=== PATIENT | male | born 1945 | race Caucasian/White ===

== ENCOUNTER 2017-10-31 13:00 | Inpatient (IN) | payer OTHER ==
[~2017-10-31] VITALS: Ht 182.9 cm; Wt 85.6 kg
--- NOTE | ~2017-10-31 | 2DMMODE ---
[facility] [address] [place] [address] 2 D/M-MODE ECHOCARDIOGRAM Name: LATHA HARDING Room #: 354-P ADM IN M.R.#: [id number] Admission: 10/31/17 Attend Phys: Eric Brown MD Discharge: Date of : 41 Date of Service: 11/01/17 1246 Report #: [id number] THIS REPORT FOR: //name// APPROVED REPORT Study performed: 11/01/2017 11:16:36 EXAM: Comprehensive 2D, Doppler, and color-flow Echocardiogram Patient Location: Bedside Room #: 354 Status: routine BSA: 2.08 HR: 89 bpm BP: 109/51 mmHg Rhythm: Irregular Other Information Study Quality: Adequate Technically limited study due to body habitus/minimal patient participation. Indications New onset Afib. Hx: CAD, HTN, HLP, Right AKA 2D Dimensions LVEF(%): 60.70 (>50%) IVSd: 9.59 (7-11mm) LVDd: 45.93 mm PWd: 10.30 (7-11mm) LVDs: 31.07 (25-40mm) Aortic Root: 38.56 mm Dale's LVEF: 60.70 % Volumes Left Atrial Volume (Systole) Single Plane 4CH: 41.56 mL Single Plane 2CH: 44.79 mL LA ESV Index: 23.00 mL/m2 Aortic Valve AoV Peak Gilbert.: 1.21 m/s AO Peak Gr.: 6.54 mmHg LVOT Max P.11 mmHg LVOT Max V: 1.01 m/s Mitral Valve E/A Ratio: 2.2 [facility] [address] [place] [address] 2 D/M-MODE ECHOCARDIOGRAM Name: LATHA HARDING Room #: 354-P ADM IN .R.#: [id number] Admission: 10/31/17 Attend Phys: Eirc Brown MD Discharge: Date of : 41 Date of Service: 11/01/17 1246 Report #: [id number] MV Decel. Time: 177.22 ms MV E Max Gilbert.: 1.02 m/s MV A Gilbert.: 0.47 m/s MV PHT: 51.39 ms IVRT: 69.20 ms Tricuspid Valve TR Peak Gilbert.: 3.11 m/s RAP Estimate: 5.00 mmHg TR Peak Gr.: 38.77 mmHg PA Pressure: 44.00 mmHg Left Ventricle The left ventricle is normal size. There is normal LV segmental wall motion. There is normal left ventricular wall thickness. Left ventricular systolic function is normal. LVEF is 55-60%. This study is not technically sufficient to allow evaluation of the LV diastolic function. Right Ventricle Right ventricle is not well visualized but appears grossly normal. Atria The left atrium size is normal. The right atrium size is normal. Aortic Valve The aortic valve is not well visualized. No aortic regurgitation is present. There is no aortic valvular stenosis. Mitral Valve The mitral valve is normal in structure. Mild mitral regurgitation. No evidence of mitral valve stenosis. Tricuspid Valve Tricuspid valve is not well visualized. Regurgitant jet is difficult to image but appears at least mild. Estimated PAP is 45mmHg. Pulmonic Valve Pulmonic valve is not well visualized. Great Vessels Aortic root is mildly dilated at 3.9. Ascending aorta is not well visualized. IVC is normal in size and collapses >50% with inspiration. [facility] [address] [place] [address] 2 D/M-MODE ECHOCARDIOGRAM Name: LATHA HARDING Room #: 354-P ADM IN M.R.#: [id number] Admission: 10/31/17 Attend Phys: Eric Brown MD Discharge: Date of : 41 Date of Service: 11/01/17 1246 Report #: [id number] Pericardium There is no pericardial effusion. <Conclusion> The left ventricle is normal size. There is normal left ventricular wall thickness. Left ventricular systolic function is normal. Right ventricle is not well visualized but appears grossly normal. The left atrium size is normal. There is no aortic valvular stenosis. Mild mitral regurgitation. There is no pericardial effusion. <ELECTRONICALLY SIGNED> By: Markel Prado MD 11/01/17 1246 1246 1246 Markel Prado MD /INF
--- NOTE | ~2017-10-31 | EKG ---
[address] [address] ELECTROCARDIOGRAM REPORT Name: LATHA HARDING Room #: 170-12 ADM IN M.R.#: [id number] Admission: 10/31/17 Attend Phys: Eric Brown MD Discharge: Date of : 41 Report #: [id number] THIS REPORT FOR: //name// [facility] ED Test Date: 2017-10-31 Test Time: 13:15:38 Pat Name: LATHA HARDING Department: Room: 170 Gender: M Farm Planner: Darcie SALDANA RN : 1945 Requested By: Cinthya Davis Order Number: [id number] MD: Xander Lyons Measurements Intervals [place] Rate: 85 P: 245 GA: 141 QRS: -30 QRSD: 100 T: 39 QT: 339 QTc: 403 Interpretive Statements Atrial fibrillation Compared to ECG 05/27/2015 17:58:44 Electronically Signed On 10-31-2017 15:19:33 SHOP TAILOR by Xander Lyons [email or web address] <ELECTRONICALLY SIGNED> By: Xander Lyons MD 10/31/17 1519 1315 1315 MD REYNA Boucher
--- NOTE | ~2017-10-31 | EEG ---
[facility] [place] [address] [place] [address] ELECTROENCEPHALOGRAM Name: LATHA HARDING Room #: 354-P [facility] IN M.R.#: [id number] Admission: 10/31/17 Attend Phys: Eric Brown MD Discharge: 11/03/17 Date of : 41 Report #: [id number] THIS REPORT FOR: //name// CC: Eric Brown DATE OF SERVICE: 11/01/2017 DATE OF EE11/01/2017. This patient is being evaluated for altered mental status as well as seizure. EEG was done by placing the electrodes by standard 10-20 system of electrode placement. Both referential and sequential montages were used. On the left side, in the temporal area, there does appear to be sometimes a sharper activity. The patient does become drowsy, that is associated with bilateral slowing and vertex sharp waves. IMPRESSION: Borderline EEG with question of some sharper activity present in the left temporal area. After the patient was taken off the EEG, he appeared to have had a seizure, which the train control technician thought was an epileptic seizure. The patient was not hooked to the EEG at that time. Thank you very much for this referral. <ELECTRONICALLY SIGNED> By: Jairo Chauhan MD 11/08/172010 0850 0927 Jairo Chauhan MD /nt
--- NOTE | ~2017-10-31 | EKG ---
[address] [address] ELECTROCARDIOGRAM REPORT Name: LATHA HARDING Room #: 354-P ADM IN M.R.#: [id number] Admission: 10/31/17 Attend Phys: Eric Brown MD Discharge: Date of : 41 Report #: [id number] THIS REPORT FOR: //name// [facility] Test Date: 2017-11-01 Test Time: 07:25:00 Pat Name: LATHA HARDING Department: Room: 354 P Gender: M Baker Second: GR : 1945 Requested By: Eric Brown Order Number: [id number] MD: Xander Lyons Measurements Intervals [place] Rate: 91 P: WI: QRS: -12 QRSD: 103 T: 36 QT: 385 QTc: 474 Interpretive Statements Atrial fibrillation Low voltage, precordial leads Compared to ECG 10/31/2017 13:15:38 Electronically Signed On 11-01-2017 8:15:35 CORKING MACHINE OPERATOR by Xander Lyons [email or web address] <ELECTRONICALLY SIGNED> By: Xander Lyons MD 11/01/17 0815 0725 4 Xander Lyons MD /LAURA
--- NOTE | ~2017-10-31 | H ---
[facility] [place] [address] [place] [address] HISTORY AND PHYSICAL Name: LATHA HARDING Room #: 354-P [facility] IN M.R.#: [id number] Admission: 10/31/17 Attend Phys: Eric Brown MD Discharge: 11/03/17 Date of : 41 Report #: [id number] THIS REPORT FOR: //name// CC: Eric Brown DATE OF SERVICE: 10/31/2017 HISTORY OF PRESENT ILLNESS: The patient is a 71-year-old male who was presented to the Emergency Room from [facility] after having a witnessed grand mal seizure that lasted for 3-4 minutes while he was at lunch. The patient's blood sugar at the EMS arrival was 138. The patient is not able to remember anything about the seizure. The patient indicated that he had seizure before, but he could not remember when was the last time he had the last seizure. PAST MEDICAL HISTORY: Significant for chronic pain syndrome, hypertension, hyperlipidemia, torticollis, hypothyroidism, constipation, gastroesophageal reflux disease, vitamin D deficiency, dry eye syndrome, oropharyngeal dysphagia. The patient had the diagnosis of right above-knee amputation. The patient had previous history of brain bleed, major spinal surgery with scoliosis and coronary artery disease. MEDICATIONS: Reviewed. ALLERGIES: AMPICILLIN, PENICILLIN and SCOPOLAMINE. SOCIAL HISTORY: The patient denies any recent history of smoking, alcohol use or drug use. The patient is living in a jail facility. FAMILY HISTORY: Noncontributory. REVIEW OF SYSTEMS: Unobtainable. PHYSICAL EXAMINATION: GENERAL: The patient is alert. He knows that he is in the hospital, but he does not remember why he came to the hospital and he continued to have very slow response even though is better than yesterday. VITAL SIGNS: On arrival to the hospital showed a temperature of 101.2, pulse 89, respirations 20, blood pressure 151/52 and last blood pressure is 113/52. HEAD AND NECK: Unremarkable besides the presence of torticollis with head lifted to the left. LUNGS: Clear to auscultation with very, very poor respiratory effort. CARDIAC: S1, S2, without any murmur or gallop. ABDOMEN: Benign. Bowel sounds were positive. EXTREMITIES: Without any edema on the left leg, with right above knee amputation. [facility] [address] [place] [address] HISTORY AND PHYSICAL Name: LATHA HARDING Room #: 354-P [facility] IN M.R.#: [id number] Admission: 10/31/17 Attend Phys: Eric Brown MD Discharge: 11/03/17 Date of : 41 Report #: [id number] LABORATORY DATA: The patient's chest x-ray showed probable areas of mild increased density suggesting atelectasis, chronic cardiomegaly with chronic appearing pulmonary congestion, no acute superimposed congestive heart failure, and basilar atelectasis. Urinalysis showed a normal urine. CBC showed a white count of 11.8, hemoglobin 11.3, hematocrit 34.5, platelet count 168 and neutrophils are 83%. The patient's ABGs showed a pH of 7.3, pCO2 64, pO2 80 and oxygen saturation was 95%. Influenza A and B were negative. Basic metabolic panel was normal besides bicarbonate of 37, anion gap of 3 and glucose of 125 but this is nonfasting blood sugar. 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 A 12-lead EKG showed atrial fibrillation. Repeat CBC today showed a white count of 10.8, hemoglobin 9.6, hematocrit 29.0, platelet count 133, neutrophils are 74%. ASSESSMENT AND PLAN: 1. Recurrent seizure, even though I could not see in the patient's chart that patient had any history of seizure, but apparently, the patient said that he had previous history of seizure and he does not know when was the last time he had this type of seizure. 2. Possible aspiration pneumonia. 3. Hypertension. 4. Coronary artery disease. 5. Atrial fibrillation, which is a new diagnosis. I will go ahead and have Neurology to consult the patient. I will repeat 12-lead EKG and I will have an echocardiogram done on the patient. The patient was started on broad-spectrum antibiotics. I will start the patient on Lovenox for DVT prophylaxis. We will continue to monitor the patient. <ELECTRONICALLY SIGNED> By: Eric Brown MD 11/11/17 1352 0702 0743 Eric Brown MD /nt
--- NOTE | ~2017-10-31 | HC ---
[facility] [place] [address] [address] [place] [address] CONSULTATION Name: LATHA HARDING Room #: 354-P [facility] IN M.R.#: [id number] Admission: 10/31/17 Attend Phys: Eric Brown MD Discharge: 11/03/17 Date of : 43 Report #: [id number] THIS REPORT FOR: //name// CC: Eric Brown DATE OF SERVICE: 11/01/2017 HISTORY OF PRESENT ILLNESS: This is a 71-year-old male patient who was seen by me with a complicated and poorly-defined history. I reviewed the patient's record and I talked to the nurses looking after this patient. The patient does not provide any reliable history and no family member is there. Apparently, this patient had a witnessed grand mal seizure, which lasted about 3-4 minutes. He has a prior history of seizure, but it is not clear when was the last seizure and whether he was put on any anticonvulsant. Record indicates that he has a history of a "brain bleed." He is on gabapentin, but looks like he is on gabapentin for the pain. He does not describe what kind of pain he has. REVIEW OF SYSTEMS: Pretty extensive. He has what looks like very fixed neck on the left side and it may be torticollis. He has a history of chronic pain syndrome, hypertension, hyperlipidemia. On examination, he also has tremor in all 4 extremities. He does not tell me where this tremor is from and how long it has been going on. He had surgeries in the past and he looks like he had an amputation on the right knee, but he cannot tell me what that is from. That was his 14-point review of system. PAST MEDICAL HISTORY: Pretty extensive and it is also positive for intractable problem. FAMILY HISTORY: Negative for any seizures. SOCIAL HISTORY: He lives in a longterm. PHYSICAL EXAMINATION: Very limited. He opens his eyes, but does not do anything for me. He does not have much speech output. I do not know what his memory is. His cranial nerve examination 2-12 was attempted. He is very poorly cooperative, but I think it is mostly nonfocal. His neck is fixed in the left lateral position. He moves all 3 extremities, but he does not cooperate with the position sense and I do not think he understands the instruction for cerebellar sign. Pulses are difficult to feel. GENERAL: He is reasonably well-built individual. CARDIAC: Unremarkable. PULMONARY: He does not appear to be in any respiratory difficulty. VITAL SIGNS: His blood pressure is 109/51, respirations 16, pulse is 113, temperature is 98.3. LABORATORY DATA: His hemoglobin is 9.6. He had a CT scan, which does [facility] [address] [place] [address] CONSULTATION Name: LATHA HARDING Room #: 354-P DIS IN M.R.#: [id number] Admission: 10/31/17 Attend Phys: Eric Brown MD Discharge: 11/03/17 Date of : 43 Report #: [id number] demonstrate pretty extensive changes. IMPRESSION: History of seizure in a patient who is predisposed to have seizure. He has multiple insults to the brain. I will suggest putting him on Keppra. He is already on gabapentin. We will get an EEG, but EEG is lot of time negative in these patients and I think it will be desirable to leave him on Keppra. Otherwise, because of what appeared to be very poor quality of his life, I will suggest conservative treatment. 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 He does have torticollis. If Botox shot has not been tried, that can be tried as an outpatient. Thank you very much for this referral and if you have any question, please feel free to contact me. <ELECTRONICALLY SIGNED> By: Jairo Chauhan MD 11/08/172008 1441 0358 Jairo Chauhan MD /nt
[~2017-10-31 13:00] MED LIST: ANTIVERT25 MG PO; CENTRUM SILVER1 EAC4 PO; DILAUDID 2 MG TA2 MG PO; GABAPENTIN 100100 MG PO; MIRALAX17 GM PO; MS CONTIN15 MG PO; OMEPRAZOLE20 M1 PO; SENNA PLUS TAB1 EACH PO; TENORMIN50 MG PO
[2017-10-31 13:01] VITALS: BP 151/72
[2017-10-31 13:55] LABS: URINE BILIRUBIN NEGATIVE (Negative); URINE BLOOD NEGATIVE (Negative); URINE CLARITY CLEAR; URINE COLOR YELLOW; URINE GLUCOSE-RANDOM* NEGATIVE (Negative); URINE KETONES NEGATIVE (Negative); URINE LEUKOCYTES NEGATIVE (Negative); URINE NITRITE NEGATIVE (Negative); URINE PROTEIN (DIPSTICK) NEGATIVE (Negative); URINE SPECIFIC GRAVITY 1.025 (1.005-1.035); URINE UROBILINOGEN 0.2 E.U./dl (0.2-1.0)
[2017-10-31 14:03] LABS: ABSOLUTE NEUTROPHILS 9.9 thou/uL (1.4-8.2); BASOPHILS 0.2 % (0.0-2.0); EOSINOPHILS 0.8 % (0.0-3.0); HEMATOCRIT 34.5 % (42.0-52.0); HEMOGLOBIN 11.3 gm/dL (14.0-18.0); LYMPHOCYTES 7.1 % (24.0-44.0); MCH 30.3 pg (26.0-34.0); MCHC 32.7 g/dL (28.0-37.0); MCV 92.8 fL (80.0-100.0); MONOCYTES 8.2 % (1.0-8.0); PLATELET COUNT 168 thou/uL (150-400); POLYS 83.7 % (36.0-66.0); RBC 3.72 mil/uL (4.50-6.00); RDW 12.8 % (10.5-14.5); WBC 11.8 thou/uL (4.0-11.0)
[2017-10-31 14:04] LABS: BE(vivo) 5.9 mmol/L (-2 to +3); HCO3 33.6 mmol/L (22.0-26.0); PCO2 64.9 mmHg (35.0-45.0); PO2 80.8 mmHg (80.0-100.0); pH 7.332 (7.360-7.450); sO2 94.8 % (92.0-98.0)
[2017-10-31 14:11] LABS: ANION GAP 3 mmol/L (7-16); BUN 18 mg/dL (7-18); CALCIUM 9.4 mg/dL (8.5-10.1); CHLORIDE 102 mmol/L (98-107); CO2 37 mmol/L (21-32); CREATININE 0.9 mg/dL (0.7-1.3); GLUCOSE 125 mg/dL (74-106); POTASSIUM 4.4 mmol/L (3.5-5.1); SODIUM 142 mmol/L (136-145)
[2017-10-31 14:20] LABS: TROPONIN-I < 0.04 ng/mL (<0.06)
[2017-10-31] MEDS ORDERED: ZOCOR20 MG PO (14:26)
[2017-10-31] MEDS ORDERED: XALATAN2.5 ML OPHTHALMIC (14:27)
[2017-10-31] MEDS ORDERED: ATROPINE SULFATE2 ML SUBLING (14:27)
[2017-10-31] MEDS ORDERED: VOLTAREN GEL 1100 GM TOP (14:28)
[2017-10-31] MEDS ORDERED: MORPHINE SULFAT30 M2 PO (14:28)
[2017-10-31] MEDS ORDERED: TYLENOL325 MG PO (14:29)
[2017-10-31] MEDS ORDERED: MULTIVITAMINS PO (14:29)
[2017-10-31] MEDS ORDERED: BISACODYL SUPP10 MG RECTAL (14:30)
[2017-10-31] MEDS ORDERED: IPRAT-ALBUT 0.5-3 ML INH (14:31)
[2017-10-31] MEDS ORDERED: PEPCID20 MG PO (14:33)
[2017-10-31] MEDS ORDERED: DILAUDID 4 MG TA4 M1 PO (14:33)
[2017-10-31] MEDS ORDERED: MUCINEX1200 MG PO (14:34)
[2017-10-31] MEDS ORDERED: LIDOCAINE35.44 GM TOP (14:36)
[2017-10-31] MEDS ORDERED: ALBUTEROL2.5 MG/31 INH (14:38)
[2017-10-31] MEDS ORDERED: TUMS PO (14:38)
[2017-10-31] MEDS ORDERED: VITAMINC500 PO (14:39)
[2017-10-31 17:13] VITALS: BP 112/55
[2017-10-31 18:42] VITALS: BP 113/57
[2017-10-31 19:40] VITALS: BP 101/43
[2017-10-31 23:55] VITALS: BP 131/56
[2017-11-01 03:54] VITALS: BP 113/52
[2017-11-01 06:48] LABS: ABSOLUTE NEUTROPHILS 8.1 thou/uL (1.4-8.2); BASOPHILS 0.3 % (0.0-2.0); EOSINOPHILS 0.7 % (0.0-3.0); HEMOGLOBIN 9.6 gm/dL (14.0-18.0); LYMPHOCYTES 12.9 % (24.0-44.0); MCH 30.8 pg (26.0-34.0); MCHC 33.1 g/dL (28.0-37.0); MCV 93.2 fL (80.0-100.0); MONOCYTES 11.2 % (1.0-8.0); PLATELET COUNT 133 thou/uL (150-400); POLYS 74.9 % (36.0-66.0); RBC 3.11 mil/uL (4.50-6.00); RDW 13.2 % (10.5-14.5); WBC 10.8 thou/uL (4.0-11.0)
[2017-11-01 07:16] LABS: CALCIUM 8.1 mg/dL (8.5-10.1); CREATININE 0.9 mg/dL (0.7-1.3); POTASSIUM 3.9 mmol/L (3.5-5.1)
[2017-11-01 08:15] VITALS: BP 109/51
[2017-11-01 15:29] LABS: TSH 1.015 uIU/mL (0.358-3.740)
[2017-11-01 20:00] VITALS: BP 120/69
[2017-11-02 04:15] LABS: CALCIUM 8.3 mg/dL (8.5-10.1); CREATININE 0.8 mg/dL (0.7-1.3)
[2017-11-02 04:23] LABS: HEMATOCRIT 28.6 % (42.0-52.0); HEMOGLOBIN 9.5 gm/dL (14.0-18.0); MCH 31.2 pg (26.0-34.0); MCHC 33.2 g/dL (28.0-37.0); MCV 94.1 fL (80.0-100.0); PLATELET COUNT 132 thou/uL (150-400); RBC 3.04 mil/uL (4.50-6.00); WBC 8.1 thou/uL (4.0-11.0)
[2017-11-02 05:07] LABS: ABSOLUTE NEUTROPHILS 4.9 thou/uL (1.4-8.2)
[2017-11-02 05:45] VITALS: BP 125/64
[2017-11-02 09:10] VITALS: BP 123/53
[2017-11-02 19:18] VITALS: BP 115/47
[2017-11-03 04:20] VITALS: BP 120/55
[2017-11-03 05:51] LABS: HEMATOCRIT 29.4 % (42.0-52.0); HEMOGLOBIN 9.7 gm/dL (14.0-18.0); MCV 93.9 fL (80.0-100.0); RBC 3.13 mil/uL (4.50-6.00); RDW 12.9 % (10.5-14.5); WBC 6.4 thou/uL (4.0-11.0)
[2017-11-03 06:03] LABS: CALCIUM 8.6 mg/dL (8.5-10.1); POTASSIUM 4.2 mmol/L (3.5-5.1)
[2017-11-03 07:51] VITALS: BP 134/52
[2017-11-03 09:12] VITALS: BP 134/52
[2017-11-03] MEDS ORDERED: KEPPRA 500 MG500 M1 PO (10:31)
[2017-11-03] MEDS ORDERED: LEVAQUIN 750 M750 MG PO (10:31)
== END 2017-11-03 15:50 | DRG 871 ==
LOC: ER 13:00 → EROBS 14:24 → 3W 14:24
PROVIDERS: Emergency Medicine; Internal Medicine; Nurse Practitioner Adult Health; Psychiatry & Neurology Neuromuscular Medicine
DX: A41.9 Sepsis, unspecified organism (principal); R65.21 Severe sepsis with septic shock; J69.0 Pneumonitis due to inhalation of food and vomit; G40.909 Epilepsy, unspecified, not intractable, without status epilepticus; I25.10 Atherosclerotic heart disease of native coronary artery without angina pectoris; I10 Essential (primary) hypertension; M41.9 Scoliosis, unspecified; E03.9 Hypothyroidism, unspecified; K21.9 Gastro-esophageal reflux disease without esophagitis; G89.4 Chronic pain syndrome; E78.5 Hyperlipidemia, unspecified; K59.00 Constipation, unspecified; H04.129 Dry eye syndrome of unspecified lacrimal gland; I48.91 Unspecified atrial fibrillation; Z79.899 Other long term (current) drug therapy; Z88.6 Allergy status to analgesic agent; Z88.8 Allergy status to other drugs, medicaments and biological substances
CPT/HCPCS: 10879

== ENCOUNTER → 2018-03-08 | Outpatient (CLI) | payer OTHER ==
[~2018-03-08] MED LIST changes: +ALBUTEROL2.5 MG/31 INH; +ATROPINE SULFATE2 ML SUBLING; +BISACODYL SUPP10 MG RECTAL; +DILAUDID 4 MG TA4 M1 PO; +IPRAT-ALBUT 0.5-3 ML INH; +KEPPRA 500 MG500 M1 PO; +LEVAQUIN 750 M750 MG PO; +LIDOCAINE35.44 GM TOP; +MORPHINE SULFAT30 M2 PO; +MUCINEX1200 MG PO; +MULTIVITAMINS PO; +PEPCID20 MG PO; +TUMS PO; +TYLENOL325 MG PO; +VITAMINC500 PO; +VOLTAREN GEL 1100 GM TOP; +XALATAN2.5 ML OPHTHALMIC; +ZOCOR20 MG PO
== END ==
LOC: RAD 09:44
DX: M85.88 Other specified disorders of bone density and structure, other site (principal); M54.6 Pain in thoracic spine; G89.4 Chronic pain syndrome; E78.5 Hyperlipidemia, unspecified; E03.9 Hypothyroidism, unspecified; K21.9 Gastro-esophageal reflux disease without esophagitis

== ENCOUNTER 2018-04-08 06:29 | Emergency (ER) | payer OTHER ==
[~2018-04-08] VITALS: Ht 182.9 cm; Wt 85.3 kg
--- NOTE | ~2018-04-08 | EKG ---
[address] [address] [place] [address] ELECTROCARDIOGRAM REPORT Name: LATHA HARDING Room #: DEP JIMMY Baron#: [id number] Admission: 04/08/18 Attend Phys: Discharge: 04/08/18 Date of : 41 Report #: [id number] THIS REPORT FOR: //name// [facility] ED Test Date: 2018-04-08 Test Time: 09:29:32 Pat Name: LATHA HARDING Department: Room: Gender: M Social Media Editor: at : 1945 Requested By: Emily Raymundo Order Number: [id number] MD: Ajay Burk Measurements Intervals [place] Rate: 100 P: 0 IN: 145 QRS: -33 QRSD: 92 T: 32 QT: 368 QTc: 475 Interpretive Statements Sinus tachycardia Left axis deviation Low voltage, precordial leads Abnormal R-wave progression, early transition Compared to ECG 11/01/2017 07:25:00 Left-axis deviation now present Atrial fibrillation no longer present Electronically Signed On 04-08-2018 14:12:02 CDT by Ajay Burk [email or web address] <ELECTRONICALLY SIGNED> By: Ajay Burk MD, [facility] 04/08/18 1412 0929 0929 Ajay Burk MD, [facility] /EPI
[2018-04-08 07:36] LABS: BASOPHILS 0.5 % (0.0-2.0); EOSINOPHILS 0.1 % (0.0-3.0); HEMATOCRIT 33.8 % (42.0-52.0); HEMOGLOBIN 11.3 gm/dL (14.0-18.0); LYMPHOCYTES 12.9 % (24.0-44.0); MCH 30.6 pg (26.0-34.0); MCHC 33.4 g/dL (28.0-37.0); MCV 91.6 fL (80.0-100.0); MONOCYTES 6.1 % (1.0-8.0); PLATELET COUNT 196 thou/uL (150-400); POLYS 80.4 % (36.0-66.0); RBC 3.69 mil/uL (4.50-6.00); RDW 13.1 % (10.5-14.5); WBC 6.2 thou/uL (4.0-11.0)
[2018-04-08 07:40] LABS: CALCIUM 9.3 mg/dL (8.5-10.1); POTASSIUM 3.6 mmol/L (3.5-5.1)
[2018-04-08 07:45] LABS: ALBUMIN 3.2 g/dL (3.4-5.0); DIRECT BILIRUBIN 0.1 mg/dL (<0.1-0.3); TOTAL BILIRUBIN 0.4 mg/dL (<0.1-1.0); TOTAL PROTEIN 7.5 g/dL (6.4-8.2)
[2018-04-08] MEDS ORDERED: ASPIRIN81 M2 PO (08:37)
[2018-04-08] MEDS ORDERED: OMEPRAZOLE 20 M20 M1 PO (08:38)
[2018-04-08] MEDS ORDERED: MUCINEX1200 MG PO (08:39)
[2018-04-08] MEDS ORDERED: ZOFRAN ODT4 MG PO (10:27)
== END 2018-04-08 12:11 ==
LOC: ER 06:29
PROVIDERS: Emergency Medicine
DX: R11.2 Nausea with vomiting, unspecified (principal); G89.4 Chronic pain syndrome; I25.10 Atherosclerotic heart disease of native coronary artery without angina pectoris; I10 Essential (primary) hypertension; E03.9 Hypothyroidism, unspecified; K21.9 Gastro-esophageal reflux disease without esophagitis; E78.5 Hyperlipidemia, unspecified; Z88.1 Allergy status to other antibiotic agents; Z88.0 Allergy status to penicillin; Z88.8 Allergy status to other drugs, medicaments and biological substances

== ENCOUNTER 2018-06-21 13:20 | Inpatient (IN) | payer OTHER ==
[~2018-06-21] VITALS: Ht 188 cm; Wt 83.0 kg
--- NOTE | ~2018-06-21 | P ---
[facility] [place] [address] [place] [address] PROCEDURE REPORT Name: LATHA HARDING Room #: 455-P [facility] IN M.R.#: [id number] Admission: 06/21/18 Attend Phys: Eric Brown MD Discharge: 06/23/18 Date of : 43 Report #: [id number] THIS REPORT FOR: //name// CC: Eric Brown MD DATE OF SERVICE: 06/22/2018 PROCEDURE PERFORMED: Upper endoscopy with biopsies. HISTORY OF PRESENT ILLNESS: The patient is a 72-year-old male who was admitted through the Emergency Room for hematemesis. He has a history of gastroesophageal reflux disease, has been on omeprazole 20 mg per day, but also on aspirin on a daily basis. Stools are Hemoccult positive. Hemoglobin was 11.2 on admission. The patient is unsure if he has ever had a previous history of upper endoscopy. Plan is for upper endoscopy. The procedure was performed under medical necessity as the patient's durable power of compliance attorney was not available. DESCRIPTION OF PROCEDURE: Sedation was given using propofol per Anesthesia. Next, using a standard Olympus upper endoscope, the scope was placed in the patient's mouth and advanced under direct vision through the esophagus, stomach and into the second portion of the duodenum. The larynx was normal in appearance. The esophagus was normal throughout. The GE junction was normal. Overall, there was a mild gastritis noted in the body and the antrum. No evidence of bleeding, no ulcerations or erosions. Biopsies were obtained to rule out H. pylori. The pylorus was normal and patent. The duodenal bulb, first and second portion were normal. The scope was then withdrawn and the procedure terminated. The patient tolerated the procedure well. IMPRESSION: 1. Mild gastritis. 2. Otherwise, normal upper endoscopy. RECOMMENDATIONS: 1. Await biopsy results. 2. Continue PPI therapy. 3. We will add Carafate at this time. 4. Continue to monitor hemoglobin. Thank you for allowing me to participate in his care. <ELECTRONICALLY SIGNED> By: Prem Edwards MD 06/25/18 1727 1300 1431 Prem Edwards MD /nt
--- NOTE | ~2018-06-21 | PATH ---
[facility] [address] [place] [address] PATHOLOGY RPT PROCEDURE Name: LATHA SMITH Room #: 455-P [facility] IN M.R.#: [id number] Admission: 06/21/18 Date of : 41 Discharge: 06/23/18 Report #: [id number] Path Case #: [id number] [facility] Accession Number: [id number] . 01 Material submitted: . BX OF GASTRITIS . 01 Clinical history: . Gastritis . 02 Diagnosis: Gastric mucosa, gastritis, endoscopic biopsy: - Lamina propria fibrosis as well as markedly congested vessels in lamina propria, features of moderate reactive gastropathy with focal ulceration. - Negative for active gastritis. - Negative for intestinal metaplasia or atrophy. - Negative for Helicobacter pylori (properly controlled immunohistochemical stain performed). (IUV/db; 06/26/18) LBQ/06/26/2018 . 02 Electronically signed: . Haylee Frank MD, Pathologist NPI- [id number] . 01 Gross description: . Received in formalin labeled "Latha Smith, biopsy of gastritis" are 2 soft aragon tissue fragments each averaging 0.3 cm which are entirely submitted as A1. (MICHELLE; 06/25/2018) JBR/JBR . 02 Pathologist provided ICD-10: K31.9, K25.9 . 02 CPT . 249540, J28518 Specimen Comment: A courtesy copy of this report has been sent to Specimen Comment: [phone], . Specimen Comment: Report sent to and Performed at: [address] [id number] MD Mayito Schultz MD Phone: [phone] Performed at: [address] [id number] [address] [address] PATHOLOGY RPT PROCEDURE Name: LATHA SMITH Room #: 455-P DIS IN M.R.#: [id number] Admission: 06/21/18 Date of : 41 Discharge: 06/23/18 Report #: [id number] Path Case #: [id number] MD Haylee Frank MD Phone: [phone]
--- NOTE | ~2018-06-21 | EKG ---
[place] [address] [address] [facility] [place] [address] ELECTROCARDIOGRAM REPORT Name: LATHA HARDING Room #: REG JIMMY Baron#: [id number] Admission: 06/21/18 Attend Phys: Discharge: Date of : 41 Report #: [id number] THIS REPORT FOR: //name// [facility] ED Test Date: 2018-06-21 Test Time: 13:49:02 Pat Name: LATHA HARDING Department: Room: Gender: M Rate And Cost Analyst: TSTANDREY : 1945 Requested By: Ashwini Jenkins Order Number: [id number] MD: Measurements Intervals [place] Rate: 98 P: 0 MA: 46 QRS: -29 QRSD: 101 T: 79 QT: 383 QTc: 490 Interpretive Statements Sinus rhythm Short MA interval Borderline left axis deviation Abnormal R-wave progression, early transition Borderline ST depression, anterolateral leads ST elevation, consider inferior injury Borderline prolonged QT interval Compared to ECG 04/08/2018 09:29:32 Short MA interval now present ST (T wave) deviation now present Myocardial infarct finding now present Sinus tachycardia no longer present [email or web address] By: [id number] 1349 [place], [place] /EPI
[~2018-06-21 13:20] MED LIST changes: +ASPIRIN81 M2 PO; +OMEPRAZOLE 20 M20 M1 PO; +ZOFRAN ODT4 MG PO
[2018-06-21 13:21] VITALS: BP 149/77
[2018-06-21 13:50] LABS: ABSOLUTE NEUTROPHILS 6.2 thou/uL (1.4-8.2); BASOPHILS 0.4 % (0.0-2.0); EOSINOPHILS 0.1 % (0.0-3.0); HEMOGLOBIN 11.2 gm/dL (14.0-18.0); LYMPHOCYTES 12.6 % (24.0-44.0); MCH 30.3 pg (26.0-34.0); MCHC 32.9 g/dL (28.0-37.0); MCV 92.1 fL (80.0-100.0); MONOCYTES 3.2 % (1.0-8.0); PLATELET COUNT 182 thou/uL (150-400); POLYS 83.7 % (36.0-66.0); RDW 13.4 % (10.5-14.5); WBC 7.4 thou/uL (4.0-11.0)
[2018-06-21 13:58] LABS: CALCIUM 9.5 mg/dL (8.5-10.1); CREATININE 0.9 mg/dL (0.7-1.3); POTASSIUM 3.6 mmol/L (3.5-5.1)
[2018-06-21 14:04] LABS: TOTAL BILIRUBIN 0.3 mg/dL (<0.1-1.0); TOTAL PROTEIN 7.5 g/dL (6.4-8.2)
[2018-06-21 15:54] VITALS: BP 143/82
[2018-06-21 16:50] VITALS: BP 143/82
[2018-06-21 16:53] LABS: URINE BILIRUBIN NEGATIVE (Negative); URINE BLOOD NEGATIVE (Negative); URINE CLARITY CLEAR; URINE COLOR YELLOW; URINE GLUCOSE-RANDOM* NEGATIVE (Negative); URINE KETONES NEGATIVE (Negative); URINE LEUKOCYTES-REFLEX NEGATIVE (Negative); URINE NITRITE-REFLEX NEGATIVE (Negative); URINE PROTEIN (DIPSTICK) NEGATIVE (Negative); URINE SPECIFIC GRAVITY 1.015 (1.005-1.035)
[2018-06-21 17:15] VITALS: BP 144/85
[2018-06-21 19:54] VITALS: BP 133/76
[2018-06-21 20:41] LABS: HEMATOCRIT 29.7 % (42.0-52.0); HEMOGLOBIN 10.1 gm/dL (14.0-18.0)
[2018-06-22 00:02] VITALS: BP 136/64
[2018-06-22 03:39] VITALS: BP 143/84
[2018-06-22 07:33] VITALS: BP 140/83
[2018-06-22 15:00] VITALS: BP 125/73
[2018-06-22 20:35] VITALS: BP 121/58
[2018-06-22 20:41] LABS: HEMATOCRIT 27.8 % (42.0-52.0); HEMOGLOBIN 9.6 gm/dL (14.0-18.0)
[2018-06-23 04:00] VITALS: BP 141/64
[2018-06-23] MEDS ORDERED: CARAFATE 1 GM TA1 G1 PO (07:35)
[2018-06-23] MEDS ORDERED: PROTONIX40 M1 PO (07:35)
[2018-06-23 07:54] VITALS: BP 147/57
[2018-06-23 08:30] LABS: HEMATOCRIT 27.5 % (42.0-52.0); HEMOGLOBIN 9.4 gm/dL (14.0-18.0); MCHC 34.2 g/dL (28.0-37.0); MCV 90.7 fL (80.0-100.0); RBC 3.03 mil/uL (4.50-6.00); RDW 13.4 % (10.5-14.5)
[2018-06-23 08:41] LABS: CALCIUM 8.9 mg/dL (8.5-10.1); CREATININE 0.8 mg/dL (0.7-1.3); POTASSIUM 3.4 mmol/L (3.5-5.1)
[2018-06-23 15:20] VITALS: BP 147/57
== END 2018-06-23 16:10 | DRG 379 ==
LOC: ER 13:20 → 4W 15:10 → EROBS 15:10 → 4W 16:58
PROVIDERS: Nurse Practitioner Adult Health; Physician Assistant
PROC: 0DB68ZX Excision of Stomach, Via Natural or Artificial Opening Endoscopic, Diagnostic (ICD-10-PCS; principal; 2018-06-22)
DX: K29.71 Gastritis, unspecified, with bleeding (principal); I10 Essential (primary) hypertension; K29.81 Duodenitis with bleeding; E78.5 Hyperlipidemia, unspecified; E03.9 Hypothyroidism, unspecified; G89.4 Chronic pain syndrome; K92.0 Hematemesis; M43.6 Torticollis; R25.1 Tremor, unspecified; D64.9 Anemia, unspecified; I25.10 Atherosclerotic heart disease of native coronary artery without angina pectoris; K21.9 Gastro-esophageal reflux disease without esophagitis; Z89.611 Acquired absence of right leg above knee; Z88.1 Allergy status to other antibiotic agents; Z88.0 Allergy status to penicillin; Z88.8 Allergy status to other drugs, medicaments and biological substances; Z79.82 Long term (current) use of aspirin; Z79.899 Other long term (current) drug therapy; I25.2 Old myocardial infarction; Z90.49 Acquired absence of other specified parts of digestive tract; Z98.49 Cataract extraction status, unspecified eye; Z86.73 Personal history of transient ischemic attack (TIA), and cerebral infarction without residual deficits
CPT/HCPCS: 10045; 62110; 62900; 70005

== ENCOUNTER 2018-06-25 09:09 | Emergency (ER) | payer OTHER ==
[~2018-06-25] VITALS: Ht 172.7 cm; Wt 90.7 kg
--- NOTE | ~2018-06-25 | EKG ---
[place] [address] [address] [place] [address] ELECTROCARDIOGRAM REPORT Name: LATHA HARDING Room #: DEP JIMMY Baron#: [id number] Admission: 06/25/18 Attend Phys: Discharge: 06/25/18 Date of : 41 Report #: [id number] THIS REPORT FOR: //name// [facility] ED Test Date: 2018-06-25 Test Time: 09:24:55 Pat Name: LATHA HARDING Department: Room: Gender: M Transportation Lead: : 1945 Requested By: Jaime Calloway Order Number: [id number] MD: Xander Lyons Measurements Intervals [place] Rate: 68 P: 0 [place]: 62 QRS: -30 QRSD: 97 T: 11 QT: 417 QTc: 444 Interpretive Statements Sinus rhythm Short [place] interval Left axis deviation Abnormal R-wave progression, early transition Compared to ECG 04/08/2018 09:29:32 Short [place] interval now present Sinus tachycardia no longer present Electronically Signed On 06-25-2018 17:47:03 CDT by Xander Lyons [email or web address] <ELECTRONICALLY SIGNED> By: Xander Lyons MD 06/25/18 3937 3 3 Xander Lyons MD /LAURA
[~2018-06-25 09:09] MED LIST changes: +CARAFATE 1 GM TA1 G1 PO; +PROTONIX40 M1 PO
[2018-06-25 09:36] LABS: HEMATOCRIT 29.5 % (42.0-52.0); HEMOGLOBIN 9.8 gm/dL (14.0-18.0); MCH 30.2 pg (26.0-34.0); MCHC 33.3 g/dL (28.0-37.0); MCV 90.8 fL (80.0-100.0); RBC 3.25 mil/uL (4.50-6.00); RDW 13.3 % (10.5-14.5); WBC 5.6 thou/uL (4.0-11.0)
[2018-06-25 09:45] LABS: ANION GAP 3 mmol/L (7-16); BUN 16 mg/dL (7-18); CALCIUM 8.9 mg/dL (8.5-10.1); CHLORIDE 107 mmol/L (98-107); CO2 32 mmol/L (21-32); CREATININE 0.7 mg/dL (0.7-1.3); GLUCOSE 102 mg/dL (74-106); POTASSIUM 3.9 mmol/L (3.5-5.1); SODIUM 142 mmol/L (136-145)
[2018-06-25 09:54] LABS: TROPONIN-I <0.06 ng/mL (<0.06)
[2018-06-25 10:46] LABS: URINE BILIRUBIN NEGATIVE (Negative); URINE BLOOD NEGATIVE (Negative); URINE CLARITY CLEAR; URINE COLOR YELLOW; URINE GLUCOSE-RANDOM* NEGATIVE (Negative); URINE KETONES NEGATIVE (Negative); URINE LEUKOCYTES-REFLEX NEGATIVE (Negative); URINE NITRITE-REFLEX NEGATIVE (Negative); URINE PROTEIN (DIPSTICK) NEGATIVE (Negative); URINE SPECIFIC GRAVITY 1.025 (1.005-1.035); URINE UROBILINOGEN 0.2 E.U./dl (0.2-1.0)
== END 2018-06-25 12:42 ==
LOC: ER 09:09
PROVIDERS: Emergency Medicine
DX: F19.921 Other psychoactive substance use, unspecified with intoxication with delirium (principal); I25.10 Atherosclerotic heart disease of native coronary artery without angina pectoris; I10 Essential (primary) hypertension; G89.4 Chronic pain syndrome; E03.9 Hypothyroidism, unspecified; K21.9 Gastro-esophageal reflux disease without esophagitis; E78.5 Hyperlipidemia, unspecified; M41.9 Scoliosis, unspecified; Z86.73 Personal history of transient ischemic attack (TIA), and cerebral infarction without residual deficits; Z88.1 Allergy status to other antibiotic agents; Z88.0 Allergy status to penicillin; Z88.8 Allergy status to other drugs, medicaments and biological substances

== ENCOUNTER 2018-10-27 03:40 | Inpatient (IN) | payer OTHER ==
[~2018-10-27] VITALS: Ht 185.4 cm; Wt 81.1 kg
[2018-10-27 03:41] VITALS: BP 104/60
[2018-10-27 04:11] LABS: BASOPHILS 0.3 % (0.0-2.0); HEMATOCRIT 37.1 % (42.0-52.0); HEMOGLOBIN 12.3 gm/dL (14.0-18.0); MCH 30.4 pg (26.0-34.0); MCHC 33.1 g/dL (28.0-37.0); MCV 91.7 fL (80.0-100.0); MONOCYTES 5.3 % (1.0-8.0); PLATELET COUNT 178 thou/uL (150-400); POLYS 89.4 % (36.0-66.0); RBC 4.04 mil/uL (4.50-6.00); RDW 14.2 % (10.5-14.5); WBC 11.2 thou/uL (4.0-11.0)
[2018-10-27 04:22] LABS: CALCIUM 9.2 mg/dL (8.5-10.1); CREATININE 1.5 mg/dL (0.7-1.3)
[2018-10-27 04:28] LABS: ALBUMIN 3.2 g/dL (3.4-5.0); TOTAL BILIRUBIN 0.5 mg/dL (<0.1-1.0); TOTAL PROTEIN 7.8 g/dL (6.4-8.2)
[2018-10-27 06:05] VITALS: BP 112/57
[2018-10-27 06:15] LABS: URINE CLARITY CLEAR; URINE COLOR YELLOW; URINE GLUCOSE-RANDOM* NEGATIVE (Negative); URINE KETONES TRACE (Negative); URINE PROTEIN (DIPSTICK) NEGATIVE (Negative); URINE SPECIFIC GRAVITY > 1.030 (1.005-1.035)
[2018-10-27 06:16] LABS: ICTOTEST (BILI CONFIRMATORY) Negative (Negative); URINE BILIRUBIN NEGATIVE (Negative); URINE BLOOD NEGATIVE (Negative); URINE LEUKOCYTES-REFLEX NEGATIVE (Negative); URINE NITRITE-REFLEX NEGATIVE (Negative)
[2018-10-27 07:05] VITALS: BP 116/47
[2018-10-27] MEDS ORDERED: PROTONIX40 M1 PO (07:21)
[2018-10-27] MEDS ORDERED: ZANAFLEX2 MG PO (07:22)
[2018-10-27] MEDS ORDERED: OXYCODONE HCL 55 MG PO (07:23)
[2018-10-27] MEDS ORDERED: DURAGESIC1 EAC4 TRANSDERM (07:24)
[2018-10-27] MEDS ORDERED: LEVSIN-SL0.125 MG PO (07:26)
[2018-10-27 07:27] VITALS: BP 124/58
[2018-10-27 15:30] VITALS: BP 133/76
[2018-10-27 19:30] VITALS: BP 128/73
--- NOTE | 2018-10-27 19:39 | NUR ---
PATIENT ADMITTED TO ROOM THIS AM. HE IS QUITE CONFUSED. UNABLE TO VERBALIZE WHERE HE IS OR WHAT DAY IT IS. HE HAS SLEPT THROUGH THE DAY. THIS AFTERNOON HE WAS MORE ALERT. HE DID ASK FOR PAIN MEDICATION. PRN PAIN MED ADMINISTERED AND IT WAS EFFECTIVE. CT SCAN SHOWED CONSTIPATION AND ONE TIME ORDER FOR FLEET ENEMA. ENEMA ADMNINISTERED AND IT WAS EFFECTIVE HE HAD A LARGE BM. WILL CONT WITH PLAN OF CARE.
--- NOTE | 2018-10-28 03:31 | NUR ---
PATIENT ASSESSED AND IS ALERT X 2-3. SKIN WARM AND DRY. RESP EVEN AND UNLABORED. IS ON 2LNC. DENIES ANY SOA. PAIN IN BACK AND NECK AREA. PAIN MED GIVEN WITH GOOOD RELIEF. DR BENSON CALLED AND ASKED ABOUT NPO STATUS AND NEW ORDERES RECEIVED WITH A EKG ORDER FOR A-FIB. TELE- SHOWS A-FIB. HAS A SCAB ON RIGHT AKA STUMP NO OPEN AREAS. ALSO A SMALL SCAB ON LEFT SIDE OF KNEE. NO OPEN AREAS. TURNED Q 2 HOURS. ONLY HAD A SMALL BM THIS SHIFT. REMAINS VERY CONTRACTED IN ARMS AND NECK. IV SITE HEALTHY WITH FLUIDS INFUSING WELL. REMAINS INCONT OF URINE. EKG DONE PER ORDERS AND IS IS IN A-FIB. DENIES ANY S/S. CONT PLAN OF CARE. LUNGS DISM IN LLL AND L UPPER LOBE. CONT PLAN OF CARE.
[2018-10-28 03:38] VITALS: BP 132/86
[2018-10-28 05:33] LABS: BASOPHILS 0.2 % (0.0-2.0); EOSINOPHILS 0.2 % (0.0-3.0); HEMATOCRIT 31.7 % (42.0-52.0); LYMPHOCYTES 9.9 % (24.0-44.0); MCH 30.7 pg (26.0-34.0); MCHC 32.6 g/dL (28.0-37.0); MCV 94.3 fL (80.0-100.0); MONOCYTES 11.3 % (1.0-8.0); PLATELET COUNT 164 thou/uL (150-400); POLYS 78.4 % (36.0-66.0); RBC 3.36 mil/uL (4.50-6.00); RDW 14.6 % (10.5-14.5); WBC 11.5 thou/uL (4.0-11.0)
[2018-10-28 05:37] VITALS: BP 138/87
[2018-10-28 05:37] LABS: HEMOGLOBIN 10.3 gm/dL (14.0-18.0)
--- NOTE | 2018-10-28 05:42 | NUR ---
Patient became raspy and his lungs are wet sounding, with wheezing. Tele- became tachy. denies any pain. vs as fo.lowed. hob elevated. placed a call to dr Brown at 0540. Awaiting his call back. iv fluids stopped for know. heart rate 101.
[2018-10-28 05:54] LABS: CALCIUM 8.5 mg/dL (8.5-10.1); CREATININE 0.9 mg/dL (0.7-1.3); POTASSIUM 3.4 mmol/L (3.5-5.1)
--- NOTE | 2018-10-28 06:31 | NUR ---
Dr schrader called back rn given vs and tele is tachy. he ordered lasix 40 mg iv push x 1. HIS LUNGS STILL SOUND RASPY. WILL MONITOR FOR CHANGES. IV FLUIDS ON HOLD CONT ANTIBIOTICS.
[2018-10-28 07:29] VITALS: BP 138/92
--- NOTE | 2018-10-28 08:04 | H ---
[facility] [place] [address] HISTORY AND PHYSICAL Name: LATHA HARDING Room #: 361-P ADM IN M.R.#: [id number] Admission: 10/27/18 Attend Phys: Eric Brown MD Discharge: Date of : 41 Report #: [id number] THIS REPORT FOR: //name// CC: Eric Brown HISTORY OF PRESENT ILLNESS: The patient is a 72-year-old male who was brought to the Emergency Room with increasing coughing and fever that has been going on for 1 day. The patient said that he has been bringing up some phlegm. The patient denies any chest pain. He denies any shortness of breath. The patient apparently was having some abdominal pain too. The patient is not able to provide me with any more information. PAST MEDICAL HISTORY: Significant for coronary artery disease, chronic pain syndrome, dizziness, dry eyes, hypertension, gastroesophageal reflux disease, hyperlipidemia, hypothyroidism, severe torticollis with left shift of the head with contracture of the neck, glaucoma, intermittent wheezing. The patient had a history of accidental right above-knee amputation. Previous history of aspiration pneumonia, GI bleed, seizure disorder, septic shock. MEDICATIONS: Reviewed and reconciled. ALLERGIES: PENICILLIN and SCOPOLAMINE. SOCIAL HISTORY: The patient has been living in a group home facility for years. No recent history of smoking, alcohol use or drug use. REVIEW OF SYSTEMS: Negative besides what was mentioned above. PHYSICAL EXAMINATION: VITAL SIGNS: On arrival to the hospital, the patient's temperature was 101.4, pulse 109, respirations 16, blood pressure 104/60. HEAD AND NECK: Unremarkable. NECK: Supple. LUNGS: Clear to auscultation, but very poor respiratory effort. CARDIAC: S1, S2, without any murmur or gallop. ABDOMEN: Benign. Bowel sounds were positive. EXTREMITIES: The patient has high right above-knee amputation and no edema on the left lower extremity. LABORATORY DATA: Influenza was negative. Chest x-ray showed bibasilar non-consolidative infiltration with persistent mediastinal widening. Lactic acid was 2.9. Urinalysis showed trace ketones, otherwise is negative. Comprehensive metabolic panel showed a sodium of 141, potassium 4, chloride 102, bicarbonate 34, anion gap 5, BUN 34, creatinine 1.5, glucose 140, ALT 16 and albumin is 3.2. CBC showed a white count of 11.2, hemoglobin 12.3, hematocrit 37.1, platelet count 478, neutrophils are 89%. The patient had an echocardiogram on 10/25 that was unremarkable. [address] [address] HISTORY AND PHYSICAL Name: LATHA HARDING Room #: 361-P ADM IN M.R.#: [id number] Admission: 10/27/18 Attend Phys: Eric Brown MD Discharge: Date of : 41 Report #: [id number] ASSESSMENT AND PLAN: 1. Pneumonia with the possibility of aspiration. 2. Abdominal pain mainly on the right lower quadrant area. 3. Elevated lactic acid. 4. Possible sepsis. The patient was admitted to the hospital with the above-mentioned diagnoses. The patient was started on broad-spectrum antibiotics and cultures were obtained. I will go ahead and do a CT scan of the abdomen and pelvis because of the abdominal tenderness. The patient to resume his home medications. He is to resume his pain management. We will continue aggressive IV hydration. We will start the patient on Lovenox for DVT prophylaxis. The patient is already on pantoprazole for gastroesophageal reflux disease and this will be for gastritis prevention. <ELECTRONICALLY SIGNED> By: Eric rBown MD 10/28/18 0804 0835 1033 Eric Brown MD /nt
[2018-10-28 15:19] VITALS: BP 120/76
--- NOTE | 2018-10-28 18:40 | NUR ---
ASSUMED PATIENT CARE AT 0700. A/O X2. CONFUSED SOME TIMES. ON CARDIZEN GTT 5ML/HR. STILL A FIB ON MONITOR. ASSISTED WITH EACH MEALS. POOR APPETITE. SLOWLY TOWARDS POC GOALS.
[2018-10-28 20:20] VITALS: BP 123/68; BP 1423/68
--- NOTE | 2018-10-29 02:14 | NUR ---
continues on the cardizem gtt tonight. iv pain reliever effective for pain. resting quietly tonight. cooperative with cares. progressing toward discharge goals.
[2018-10-29 04:45] VITALS: BP 115/55
[2018-10-29 05:27] LABS: ABSOLUTE NEUTROPHILS 6.8 thou/uL (1.4-8.2); BASOPHILS 0.1 % (0.0-2.0); HEMATOCRIT 27.1 % (42.0-52.0); LYMPHOCYTES 12.8 % (24.0-44.0); MCHC 33.3 g/dL (28.0-37.0); MCV 93.1 fL (80.0-100.0); MONOCYTES 11.5 % (1.0-8.0); PLATELET COUNT 141 thou/uL (150-400); POLYS 73.6 % (36.0-66.0); RBC 2.92 mil/uL (4.50-6.00); RDW 14.2 % (10.5-14.5); WBC 9.3 thou/uL (4.0-11.0)
[2018-10-29 05:45] LABS: CALCIUM 8.1 mg/dL (8.5-10.1); CREATININE 0.9 mg/dL (0.7-1.3); MAGNESIUM 1.5 mg/dL (1.8-2.4); POTASSIUM 3.3 mmol/L (3.5-5.1)
[2018-10-29 08:05] VITALS: BP 121/54
--- NOTE | 2018-10-29 08:44 | EKG ---
[address] [address] ELECTROCARDIOGRAM REPORT Name: LATHA HARDING Room #: 361-P ADM IN M.R.#: [id number] Admission: 10/27/18 Attend Phys: Eric Brown MD Discharge: Date of : 41 Report #: [id number] THIS REPORT FOR: //name// [facility] Test Date: 2018-10-27 Test Time: 22:08:33 Pat Name: LATHA HARDING Department: Room: 361 P Gender: M Online Facilitator: LYNNETTE RUFFIN : 1945 Requested By: Eric Brown Order Number: [id number] MD: Ajay Burk Measurements Intervals [place] Rate: 95 P: AR: QRS: 170 QRSD: 89 T: 41 QT: 345 QTc: 434 Interpretive Statements Atrial fibrillation Low voltage Probable right ventricular hypertrophy Compared to ECG 06/25/2018 09:24:55 axis has shifted rightward Atrial fibrillation is present Electronically Signed On 10-29-2018 8:43:49 HEMODIALYSIS TECHNICIAN by Ajay Burk [email or web address] <ELECTRONICALLY SIGNED> By: Ajay Burk MD, [facility] 10/29/18 0843 07 07 Ajay Burk MD, [facility] /EPI
--- NOTE | 2018-10-29 10:45 | NUR ---
DP FAXED REFERRAL TO [facility], ASKED IF PATIENT IS LTC OR SKILLED. NO DC DATE YET. DP WILL FOLLOW UP.
--- NOTE | 2018-10-29 13:11 | NUR ---
INITIAL ASSESSMENT: SW received high risk nursing referral due to pt being admitted from a nursing facility. SW reviewed chart and spoke with nursing. Pt was admitted from [facility] due to HCAP/AMS/CKD. Pt was on cardizem gtt, which was discontinued earlier today. Pt is progressing towards goals for discharge back to [facility]. SW met with pt at bedside. Pt was sleeping soundly during time of visit. APRIL spoke with pt's DPOA, Garland Frey ([phone]) to obtain info for assessment. Pt has lived at [facility] since 2014. Pt with hx of right AKA. Plan is for pt to return to [facility] when medically stable. urban planner sent clinical info to [facility] for review. Confirmed pt is there in LTC. Pt may be appropriate for skilled level of care when he returns. APRIL is following to assist as needed with discharge planning.
[2018-10-29 15:32] VITALS: BP 121/89
--- NOTE | 2018-10-29 15:53 | NUR ---
WOUND CONSULT: PT. HAS A TRAMATIC WOUND TO HIS RIGHT THIGH. PT. REPORTS THAT HE SPILLED HOT COFFEE ON HIMSELF PRIOR TO ADMISSION. TODAY THAT AREA IS HEALING WITH AN INTACK HEALTHY SCAB IN PLACE. NO SIGNS OR SYMPTOMS OF INFECTION ARE NOTED. RECOMMENDATION: WOUND CARE TO RIGHT THIGH: GENTLY CLEANSE WITH WOUND CLEANSER OR NORMAL SALINE, PAINT WITH BETADINE, COVER WITH BORDERED FOAM, COMPLETE CARES DAILY. PT. AND STAFF NURSE WERE INSTRUCTED ON PLAN OF CARE.
--- NOTE | 2018-10-29 16:47 | EKG ---
[place] [address] [facility] [place] [address] ELECTROCARDIOGRAM REPORT Name: LATHA HARDING Room #: 361-P ADM IN M.R.#: [id number] Admission: 10/27/18 Attend Phys: Eric Brown MD Discharge: Date of : 41 Report #: [id number] THIS REPORT FOR: //name// [facility] Test Date: 2018-10-29 Test Time: 07:16:47 Pat Name: LATHA HARDING Department: Room: 361 P Gender: M Labels Molder: JUANCARLOS : 1945 Requested By: Skye Marrufo Order Number: [id number] MD: Ajay Burk Measurements Intervals [place] Rate: 85 P: DC: QRS: -26 QRSD: 98 T: 16 QT: 339 QTc: 403 Interpretive Statements Baseline artifact limits rhythm interpretation Possible sinus rhythm with atrial premature complexes for R wave progression Nonspecific ST and T wave abnormality Electronically Signed On 10-29-2018 16:47:21 PEOPLES[employer]FT HRMS DEVELOPER by Ajay Burk [email or web address] <ELECTRONICALLY SIGNED> By: Ajay Burk MD, [facility] 10/29/18 1647 0716 5 Ajay Burk MD, [facility] /EPI
--- NOTE | 2018-10-29 18:25 | NUR ---
ASSUMED PAITENT CARE AT 0700. A/O X4. TOLERATED [facility] DIET. ASSISTED WITH EACH MEALS. ABLE TO FINSH 30-40%. AFIB ON MONITOR.VSS Q2H TURN. PROGRESSING TOWARDS POC GOALS.
[2018-10-29 19:45] VITALS: BP 137/72
[2018-10-29 23:34] VITALS: BP 122/67
[2018-10-30 02:41] VITALS: BP 121/53
--- NOTE | 2018-10-30 03:58 | NUR ---
ASSUMED PT CARE AROUND 1900. A&OX4, FORGETFUL. SLOW TO RESPOND BUT IS ABLE TO MAKE NEEDS KNOWN AND COMMUNICATE. AFIB ON TELE, RATE CONTROLLED. VSS. Q2H TURN TO PREVENT SKIN BREAKDOWN. PT SLEPT MOST OF THE NIGHT. RESP EVEN AND UNLABORED. FALL PRECAUTIONS IN PLACE. PROGRESSING SLOWLY TOWARD POC GOALS. WILL CONTINUE TO MONITOR FURTHER.
[2018-10-30 04:18] LABS: CALCIUM 8.6 mg/dL (8.5-10.1); CREATININE 0.9 mg/dL (0.7-1.3)
[2018-10-30 04:42] LABS: ABSOLUTE NEUTROPHILS 4.5 thou/uL (1.4-8.2); BASOPHILS 0.3 % (0.0-2.0); EOSINOPHILS 5.2 % (0.0-3.0); HEMATOCRIT 30.5 % (42.0-52.0); HEMOGLOBIN 9.8 gm/dL (14.0-18.0); LYMPHOCYTES 19.4 % (24.0-44.0); MCH 29.9 pg (26.0-34.0); MCV 93.3 fL (80.0-100.0); MONOCYTES 11.6 % (1.0-8.0); PLATELET COUNT 170 thou/uL (150-400); POLYS 63.5 % (36.0-66.0); RBC 3.27 mil/uL (4.50-6.00); RDW 14.1 % (10.5-14.5)
[2018-10-30 07:53] VITALS: BP 131/82
--- NOTE | 2018-10-30 10:53 | 2DMMODE ---
[facility] [employer] [place] [address] 2 D/M-MODE ECHOCARDIOGRAM Name: LATHA HARDING Room #: 361-P ADM IN M.R.#: [id number] Admission: 10/27/18 Attend Phys: Eric Brown MD Discharge: Date of : 41 Date of Service: 10/30/18 1053 Report #: [id number] THIS REPORT FOR: //name// APPROVED REPORT Study performed: 10/30/2018 09:24:20 EXAM: Comprehensive 2D, Doppler, and color-flow Echocardiogram Patient Location: Bedside Room #: 361 Status: routine BSA: 2.03 HR: 67 bpm BP: 121/53 mmHg Rhythm: NSR/Irregular Other Information Study Quality: Adequate Technically limited study due to limited mobility and limited cooperation. Indications Afib. Hx: CAD, Afib, HTN, HLP, AKA 2D Dimensions RVDd: 32.44 mm IVSd: 10.35 (7-11mm) LVOT Diam: 20.63 (18-24mm) LVDd: 46.11 mm PWd: 9.85 (7-11mm) LVDs: 32.92 (25-40mm) Aortic Root: 39.06 mm Volumes Left Atrial Volume (Systole) Single Plane 4CH: 51.92 mL Single Plane 2CH: 60.96 mL LA ESV Index: 30.00 mL/m2 Aortic Valve AoV Peak Gilbert.: 1.12 m/s AO Peak Gr.: 5.06 mmHg LVOT Max P.91 mmHg LVOT Max V: 0.99 m/s JEYSON Vmax: 2.93 cm2 Mitral Valve E/A Ratio: 2.2 MV Decel. Time: 198.66 ms [facility] [place] [address] 2 D/M-MODE ECHOCARDIOGRAM Name: LATHA HARDING Room #: 361-P ADM IN .R.#: [id number] Admission: 10/27/18 Attend Phys: Eric Brown MD Discharge: Date of : 41 Date of Service: 10/30/18 1053 Report #: [id number] MV E Max Gilbert.: 0.92 m/s MV A Gilbert.: 0.41 m/s MV PHT: 57.61 ms IVRT: 58.82 ms Pulmonary Valve PV Peak Gilbert.: 0.83 m/s PV Peak Gr.: 2.77 mmHg Tricuspid Valve TR Peak Gilbert.: 3.11 m/s RAP Estimate: 5.00 mmHg TR Peak Gr.: 38.81 mmHg PA Pressure: 44.00 mmHg Left Ventricle The left ventricle is normal size. There is normal left ventricular wall thickness. Left ventricular systolic function is normal. LVEF is 50-55%. Grade II - pseudonormal filling dynamics. Right Ventricle The right ventricle is normal size. The right ventricular systolic function is normal. Atria The left atrium size is normal. The right atrium size is normal. Aortic Valve The Aortic valve is sclerotic but not well visualized. No aortic regurgitation is present. There is no aortic valvular stenosis. Mitral Valve The mitral valve is normal in structure. Mild mitral regurgitation. No evidence of mitral valve stenosis. Tricuspid Valve The tricuspid valve is normal in structure. Mild to moderate tricuspid regurgitation. Estimated PAP is 45mmHg. Pulmonic Valve Pulmonic valve is not well visualized. Mild pulmonic regurgitation. [employer] [facility] [address] [place] [address] 2 D/M-MODE ECHOCARDIOGRAM Name: LATHA HARDING Room #: 361-P ADM IN M.R.#: [id number] Admission: 10/27/18 Attend Phys: Eric Brown MD Discharge: Date of : 41 Date of Service: 10/30/18 1053 Report #: [id number] Aortic root is mildly dilated at 3.9cm. Ascending aorta is not well visualized. IVC is normal in size and collapses >50% with inspiration. Pericardium There is no pericardial effusion. <Conclusion> The left ventricle is normal size. There is normal left ventricular wall thickness. Left ventricular systolic function is normal. Grade II - pseudonormal filling dynamics. The right ventricle is normal size. The left atrium size is normal. There is no aortic valvular stenosis. Mild mitral regurgitation. Mild to moderate tricuspid regurgitation. Estimated PAP is 45mmHg. <ELECTRONICALLY SIGNED> By: Markel Prado MD 10/30/18 1053 1053 1053 Markel Prado MD /INF
--- NOTE | 2018-10-30 13:52 | NUR ---
SW reviewed chart and spoke with nursing. Pt is progressing towards goals for discharge. Discharge back to [facility] is anticipated for tomorrow. SW left voice message for Vanessa in admissions to notify of anticipated discharge. Clinical updates to be sent to [facility] for review. APRIL is following to assist as needed with discharge planning.
--- NOTE | 2018-10-30 14:55 | NUR ---
satya sent updates to [facility]. NE likely tomorrow.
--- NOTE | 2018-10-30 18:11 | NUR ---
ASSUMED PATIENT CARE AT 0700. A/O X4. NO DISTRESS NOTED. Q2H TURN. PROGRESSING TOWARDS POC GOALS.
[2018-10-30 19:32] VITALS: BP 127/76
--- NOTE | 2018-10-31 02:13 | NUR ---
ASSUMED CARE OF PATIENT AT 1900. VSS, AFEBRILE. SUCTIONED HOOKED UP TO THE WALL, DOES NEED FREQUENT ORAL CARE. EXTERNAL MALE CATHETER IN PLACE, SOME LEAKAGE. PLANS TO DC TODAY. PROGRESSING TOWARDS POC GOALS.
[2018-10-31 03:52] VITALS: BP 133/62
[2018-10-31] MEDS ORDERED: LEVAQUIN 500 M500 M2 PO (07:36)
[2018-10-31] MEDS ORDERED: ATENOLOL 50MG T50 M1 PO (07:37)
[2018-10-31] MEDS ORDERED: IPRAT-ALBUT 0.5-3 ML INH (07:37)
[2018-10-31] MEDS ORDERED: CARDIZEM30 MG PO (07:38)
[2018-10-31 07:50] VITALS: BP 126/63
[2018-10-31 12:50] VITALS: BP 126/63
--- NOTE | 2018-10-31 13:36 | NUR ---
DISCHARGE ORDERS RECEIVED. PATIENT DISCHARGING TO [facility]. CHART COPIED PER OCULAR PATHOLOGIST. ORDERS FAXED TO [facility], VERIFIED RECEIVED. [facility] TO TRANSPORT PATIENT, 1530 HOURS. MARIKA CHACON NOTIFIED OF DISCHARGE. UNIT RN NOTIFIED AND CONTACT NUMBER PROVIDED FOR REPORT.
--- NOTE | 2018-10-31 13:37 | NUR ---
DISCHARGE NOTE: SW reviewed chart and spoke with nursing. Pt is medically stable to return to [facility] today. planner/scheduler coordinated and notified pt's DPOA. No additional SW needs identified at this time, but is available to assist should needs arise.
--- NOTE | 2018-10-31 15:37 | NUR ---
ASSUMED PATIENT CARE AT 0700. A/O X4. ST CHANGED TO PUREE DIET FOR PATIENT. VSS. NO DISTRESS NOTED. DC TO SNF NOW.
== END 2018-10-31 15:40 | DRG 871 ==
LOC: ER 03:40 → EROBS 04:58 → 3W 04:58
PROVIDERS: Emergency Medicine; ADMIT Internal Medicine
DX: A41.9 Sepsis, unspecified organism (principal); J69.0 Pneumonitis due to inhalation of food and vomit; I48.92 Unspecified atrial flutter; I48.91 Unspecified atrial fibrillation; G89.29 Other chronic pain; M54.9 Dorsalgia, unspecified; E03.9 Hypothyroidism, unspecified; M41.9 Scoliosis, unspecified; K52.9 Noninfective gastroenteritis and colitis, unspecified; I12.9 Hypertensive chronic kidney disease with stage 1 through stage 4 chronic kidney disease, or unspecified chronic kidney disease; N18.9 Chronic kidney disease, unspecified; G40.909 Epilepsy, unspecified, not intractable, without status epilepticus; K21.9 Gastro-esophageal reflux disease without esophagitis; I25.10 Atherosclerotic heart disease of native coronary artery without angina pectoris; E78.5 Hyperlipidemia, unspecified; Z88.1 Allergy status to other antibiotic agents; Z88.0 Allergy status to penicillin; Z88.8 Allergy status to other drugs, medicaments and biological substances; Z90.49 Acquired absence of other specified parts of digestive tract; Z98.49 Cataract extraction status, unspecified eye; Z79.899 Other long term (current) drug therapy; Z89.611 Acquired absence of right leg above knee
CPT/HCPCS: 10879

== ENCOUNTER 2019-01-23 18:05 | Emergency (ER) | payer OTHER ==
[~2019-01-23] VITALS: Ht 162.6 cm; Wt 72.6 kg
[~2019-01-23 18:05] MED LIST changes: +ATENOLOL 50MG T50 M1 PO; +CARDIZEM30 MG PO; +DURAGESIC1 EAC4 TRANSDERM; +LEVAQUIN 500 M500 M2 PO; +LEVSIN-SL0.125 MG PO; +OXYCODONE HCL 55 MG PO; +ZANAFLEX2 MG PO
[2019-01-23] MEDS ORDERED: ASPIR 8181 MG PO (18:36)
[2019-01-23] MEDS ORDERED: MIRALAX17 GM PO (18:36)
[2019-01-23] MEDS ORDERED: IMDUR 30 MG TAB30 M1 PO (18:38)
[2019-01-23] MEDS ORDERED: LIPITOR10 MG PO (18:38)
[2019-01-23] MEDS ORDERED: XALATAN2.5 ML OPHTHALMIC (18:39)
[2019-01-23 19:43] LABS: HEMATOCRIT 28.5 % (42.0-52.0); HEMOGLOBIN 9.6 gm/dL (14.0-18.0); MCH 30.3 pg (26.0-34.0); MCHC 33.6 g/dL (28.0-37.0); MCV 90.2 fL (80.0-100.0); PLATELET COUNT 202 thou/uL (150-400); RBC 3.16 mil/uL (4.50-6.00); RDW 13.9 % (10.5-14.5); WBC 4.3 thou/uL (4.0-11.0)
[2019-01-23 19:51] LABS: ANION GAP 7 mmol/L (7-16); BUN 18 mg/dL (7-18); CALCIUM 8.9 mg/dL (8.5-10.1); CHLORIDE 107 mmol/L (98-107); CO2 31 mmol/L (21-32); CREATININE 0.8 mg/dL (0.7-1.3); GLUCOSE 116 mg/dL (74-106); POTASSIUM 3.8 mmol/L (3.5-5.1); SODIUM 145 mmol/L (136-145)
[2019-01-23 19:53] LABS: URINE BILIRUBIN NEGATIVE (Negative); URINE BLOOD NEGATIVE (Negative); URINE CLARITY CLEAR; URINE COLOR YELLOW; URINE GLUCOSE-RANDOM* NEGATIVE (Negative); URINE KETONES NEGATIVE (Negative); URINE LEUKOCYTES-REFLEX NEGATIVE (Negative); URINE NITRITE-REFLEX NEGATIVE (Negative); URINE PROTEIN (DIPSTICK) NEGATIVE (Negative); URINE SPECIFIC GRAVITY 1.025 (1.005-1.035)
[2019-01-23 20:00] LABS: TROPONIN-I <0.06 ng/mL (<0.06)
[2019-01-23 20:10] LABS: ABSOLUTE NEUTROPHILS 1.8 thou/uL (1.4-8.2)
[2019-01-23 20:11] LABS: ANISOCYTOSIS 1+
[2019-01-23 22:55] VITALS: BP 115/64
--- NOTE | 2019-01-24 17:14 | EKG ---
[address] [address] ELECTROCARDIOGRAM REPORT Name: LATHA HARDING Room #: DEP JIMMY Baron#: [id number] ������������������ Admission: 01/23/19 ������������������ Attend Phys: Discharge: 01/23/19 ������������������ Date of : 41 Report #: [id number] ����������������������������������������������������������������� [id number] THIS REPORT FOR: //name// [facility] Test Date: 2019-01-23 Test Time: 18:46:50 Pat Name: LATHA HADRING Department: Room: Gender: M Dental Laboratory Technician Apprentice: [place] : 1945 Requested By: Jaime Calloway Order Number: [id number] MD: Xander Lyons Measurements Intervals [place] Rate: 71 P: [place]: QRS: -28 QRSD: 98 T: 29 QT: 408 QTc: 444 Interpretive Statements Atrial fibrillation Borderline left axis deviation Abnormal R-wave progression, early transition Compared to ECG 10/29/2018 07:16:47 Poor R-wave progression no longer present ST (T wave) deviation no longer present Electronically Signed On 01-24-2019 17:14:44 CDT by Xander Lyons [email or web address] ��������������������������������������������� <ELECTRONICALLY SIGNED> ���������������������������������������� By: Xander Lyons MD ��������������������������������������������� 01/24/19 1714 1846 45 Xander Lyons MD /EPI
== END 2019-01-23 22:56 | disposition home or self-care (01) ==
LOC: ER 18:05
PROVIDERS: Emergency Medicine
DX: F80.9 Developmental disorder of speech and language, unspecified (principal); I25.10 Atherosclerotic heart disease of native coronary artery without angina pectoris; I10 Essential (primary) hypertension; G89.4 Chronic pain syndrome; E03.9 Hypothyroidism, unspecified; K21.9 Gastro-esophageal reflux disease without esophagitis; E78.5 Hyperlipidemia, unspecified; M41.9 Scoliosis, unspecified; Z86.73 Personal history of transient ischemic attack (TIA), and cerebral infarction without residual deficits; Z88.0 Allergy status to penicillin; Z88.1 Allergy status to other antibiotic agents; Z88.8 Allergy status to other drugs, medicaments and biological substances

== ENCOUNTER → 2019-10-21 | Outpatient (CLI) | payer OTHER ==
[~2019-10-21] MED LIST changes: +ASPIR 8181 MG PO; +IMDUR 30 MG TAB30 M1 PO; +LIPITOR10 MG PO
== END ==
LOC: ULTRA 10-18 10:11
DX: N63.20 Unspecified lump in the left breast, unspecified quadrant (principal)